=== PATIENT | female | born 1975 | race Caucasian/White ===

== ENCOUNTER 2024-12-03 10:59 | Emergency (ER) | payer BC ==
[2024-12-03] MEDS ORDERED: Dexamethasone 10 MG/ML VIAL ONE (12:43)
== END 2024-12-03 13:02 | disposition home or self-care (01) ==
LOC: MADERS 10:59
DX: J30.1 Allergic rhinitis due to pollen (principal); J02.9 Acute pharyngitis, unspecified
CPT/HCPCS: 87081; 87428; 87430; 96372; 99283; J1100